=== PATIENT | female | born 1990 ===

== ENCOUNTER 2024-09-04 10:25 | Outpatient (REF) | payer BC, SELFPAY ==
--- NOTE | 2024-09-04 10:30 | CRLHL7_ITS ---
For Patients: As a result of the Cures Act, medical imaging exams and procedure reports are released immediately into your electronic medical record. You may view this report before your referring provider. If you have questions, please contact your health care provider. Indication: Employee health, history of PPD Technique: Chest 1 view Comparison: None Findings/Impression: Cardiovascular and mediastinum: Heart size and vasculature are normal in caliber and appearance. Lungs and pleural space: Lungs are clear. No sign of infiltrate or mass. No sign of pleural effusion. No pneumothorax. No evidence of active tuberculosis. Bones and soft tissues: No acute findings. Dictated by Seymour Chauhan MD @ 09/04/2024 1:14:29 PM (Electronically Signed)
== END 2024-09-04 10:26 | disposition home or self-care (01) ==
LOC: RAD 10:25
PROVIDERS: PCP Preventive Medicine Occupational Medicine; Visit Provider Preventive Medicine Occupational Medicine
DX: R76.11 Nonspecific reaction to tuberculin skin test without active tuberculosis (principal); Z92.89 Personal history of other medical treatment
CPT/HCPCS: 71045